=== PATIENT | male | born 1990 | race Caucasian/White ===

== ENCOUNTER 2023-11-01 15:13 | Emergency (ER) | payer SELFPAY ==
[2023-11-01 15:13] VITALS: BP 105/68; PULSE 91; RESP 22; TEMP 36.6; O2SAT 93; BMI 47.0
--- NOTE | 2023-11-01 15:20 | ED.C_ITS ---
HPI - Psych 2 General: Chief Complaint: Psychiatric Symptoms Stated Complaint: mhe Time Seen by Provider: 11/01/23 15:14 Source: patient and family Mode of arrival: EMS Limitations: other (intoxicated) History of Present Illness: Patient is a 33-year-old male presents to ED today via EMS for evaluation of a possible panic attack . Patient states earlier he felt like he could not breathe which then triggered his to call 911. later arrives and is able to speak to her as well. Patient is a longstanding alcoholic drinking up to 1/5 daily. states he recently lost his job so has been on a marti over the past week. She states he has been having episodes where he feels like he cannot breathe for approximately an hour over the past week or so. He has not had any seizure-like activity. Patient is not interested in alcohol detox. He reports marijuana use but no other drug use. He states he is not homicidal or suicidal. MD complaint: other (alcohol abuse, possible panic attacks) Onset (ago): day(s) Duration: intermittent History of same: Yes Exacerbating factors: alcohol Context: recent alcohol abuse Associated psychiatric symptoms: depression Associated symptoms: Reports depression; Deny auditory hallucinations, visual hallucinations, homicidal ideation or suicidal ideation Treatments prior to arrival: none Review of Systems 2 Const: Denies: fever(s), chills, body aches, fatigue or malaise Eyes: Denies: change in vision, blurry vision, photophobia, floaters or seeing flashes Card: Denies: chest pain, palpitations, irregular heart rhythm, edema, syncope or pre-syncope Resp: Reports: dyspnea (intermittent); Denies: productive cough, non-productive cough, wheezing or hemoptysis GI: Denies: abdominal pain, nausea, vomiting or diarrhea Musc: Denies: neck pain, back pain, extremity pain or joint pain Neuro: Denies: headache(s), numbness in extremities, weakness in extremities or sensory changes Psych: Reports: anxiety and depression; Denies: paranoia, visual hallucinations, auditory hallucinations, suicidal ideation or homicidal ideation Physical Exam 2 Const: COMMON NORMALS: no acute distress, patient oriented x3, no limitations, alert and well nourished GENERAL APPEARANCE: cooperative and odor of alcohol detected ORIENTATION/CONSCIOUSNESS: Yes awake, Yes oriented to person, Yes oriented to place and Yes oriented to time OTHER: intoxicated HENMT: COMMON NORMALS: normocephalic and atraumatic HEAD & SCALP: normal to inspection, normocephalic and atraumatic Chest: COMMONS NORMALS: normal inspection of the chest and normal palpation of entire chest wall Resp: COMMON NORMALS: normal respiratory effort and clear to auscultation bilaterally AUSCULTATION: clear to auscultation bilaterally Cardio: COMMON NORMALS: regular rate and regular rhythm RATE: regular rate RHYTHM: regular rhythm GI: COMMON NORMALS: Normal to inspection, nondistended, normoactive bowel sounds present, Soft to palpation and non-tender PALPATION: Yes Soft to palpation Neuro: RADHA COMA SCALE: document GCS findings Radha coma scale eye opening: Spontaneous Radha coma scale verbal response: Orientated Hydro coma scale motor response: Obey commands Radha coma scale total score: 15 COMMON NORMALS: patient oriented x3 SENSORIUM/ORIENTATION: Yes alert, Yes oriented to person, Yes oriented to place and Yes oriented to time Psych: COMMON NORMALS: cooperative APPEARANCE: Yes grossly normal A TTITUDE: Yes calm SPEECH: Yes slurred (intoxicated) OTHER: exam limited secondary to intoxication status Course 2 Vital Signs: Vital signs: Vital Signs Temperature 97.9 F 11/01/23 19:51 Pulse Rate 83 11/01/23 19:55 Respiratory Rate 16 11/01/23 19:55 Blood Pressure 117/74 11/01/23 19:55 Pulse Oximetry 93 11/01/23 19:55 Oxygen Delivery Me thod Room Air 11/01/23 19:55 MDM - Psych Medical Decision Making Patient is not suicidal or homicidal. He is sobering up and ambulatory here without difficulty. His is here to provide a ride home. He states he has an initial follow-up appointment at [facility] on Friday and is going to discuss with them treatment options for his chronic alcohol abuse. Blood work here is consistent with his chronic alcohol abuse-thrombocytopenia, elevated, transaminitis. He was encouraged to follow up with PCP for these inconsistencies. He does not want any form of treatment here and would like to go home. Medical Records I reviewed the patient's medical records. Lab Data I reviewed the patient's lab results. 11/01/23 16:32 11/01/23 16:32 Radiology Impressions Chest X-Ray 11/01/23 15:53 IMPRESSION: No acute findings. Laboratory Results WBC 9.11 10^3/uL (3.29-11.43) 11/01/23 16:32 RBC 4.34 10^6/uL (3.85-5.65) 11/01/23 16:32 Hgb 15.10 g/dL (11.27-16.99) 11/01/23 16:32 Hct 43.4 % (37-53) 11/01/23 16:32 MCV 100.0 fl (82-101) 11/01/23 16:32 MCH 34.8 pg (27-33) H 11/01/23 16:32 MCHC 34.8 g/dL (30-55) 11/01/23 16:32 RDW 12.5 % (12.1-15.1) 11/01/23 16:32 Plt Count 56 10^3/cmm (157-399) L 11/01/23 16:32 MPV 10.1 fL (7.4-10.4) 11/01/23 16:32 Neut % (Auto) 62.2 % 11/01/23 16:32 Lymph % (Auto) 28.5 % 11/01/23 16:32 [place] % (Auto) 8.1 % 11/01/23 16:32 Eos % (Auto) 0.2 % 11/01/23 16:32 Baso % (Auto) 0.8 % 11/01/23 16:32 Neut # (Auto) 5.66 10^3/uL (1.8-7.7) 11/01/23 16:32 Lymph # (Auto) 2.6 10^3/uL (0.8-4.8) 11/01/23 16:32 [place] # (Auto) 0.7 10^3/uL (0.2-0.9) 11/01/23 16:32 Eos # (Auto) 0.0 10^3/uL (0.0-0.8) 11/01/23 16:32 Baso # (Auto) 0.1 10^3/uL (0.0-0.1) 11/01/23 16:32 Nucleated RBC % (auto) 0 % 11/01/23 16:32 Nucleated RBCs # 0.0 /100WBC 11/01/23 16:32 Sodium 140 mmol/L (136-145) 11/01/23 16:32 Potassium 4.0 mmol/L (3.5-5.1) 11/01/23 16:32 Chloride 99 mmol/L (98-107) 11/01/23 16:32 Carbon Dioxide 23 mmol/L (22-29) 11/01/23 16:32 Anion Gap 22.0 (5-19) H 11/01/23 16:32 BUN 21 mg/dL (6-20) H 11/01/23 16:32 Creatinine 2.0 mg/dL (0.7-1.2) H 11/01/23 16:32 GFR Calculation 38.4 mL/min (90-130) L 11/01/23 16:32 Glucose 107 mg/dL (65-115) 11/01/23 16:32 Calculated Osmolality 293 mOsm/kg (285-295) 11/01/23 16:32 Calcium 8.9 mg/dL (8.5-10.5) 11/01/23 16:32 Total Bilirubin 1.2 mg/dL (0.15-1.2) 11/01/23 16:32 AST 169 U/L (0-40) H 11/01/23 16:32 ALT 87 U/L (0-41) H 11/01/23 16:32 Alkaline Phosphatase 95 U/L (40-130) 11/01/23 16:32 Total Protein 6.9 g/dL (6.6-8.7) 11/01/23 16:32 Albumin 4.0 g/dL (3.5-5.2) 11/01/23 16:32 Globulin 2.9 g/dL (1.3-4.6) 11/01/23 16:32 Salicylates < 0.3 mg/dL (3-10) L 11/01/23 16:32 Acetaminophen < 5.0 ug/mL (10-30) L 11/01/23 16:32 Ethyl Alcohol 450 mg/dL (0-10) H* 11/01/23 16:32 No radiology studies performed this visit Discharge Plan Discharge Patient Disposition: Home Clinical Impression: Chronic alcohol abuse Acute alcoholic intoxication in alcoholism (blood level over 0.3) Qualifiers: Complication of substance-induced condition: uncomplicated Qualified Code(s): F 10220 - Alcohol dependence with intoxication, uncomplicated Condition: Stable Discharge Orders: Discharge ED (Routine); Ordered 11/01/23 Ordered By: Annalee Crain Coding Level of Care Code ED Police [employer] Lieutenant for Katiuska Melgar
--- NOTE | 2023-11-01 15:53 | XRR_ITS ---
PROCEDURE INFORMATION: Exam: XR Chest Exam date and time: 11/01/2023 4:00 PM Age: 33 years old Clinical indication: Pain; Chest pressure; Additional info: Chest pain TECHNIQUE: Imaging protocol: Radiologic exam of the chest. Views: 1 view. COMPARISON: No relevant prior studies available. FINDINGS: Lungs: Unremarkable. No consolidation. Pleural spaces: Unremarkable. No pleural effusion. No pneumothorax. Heart/Mediastinum: Unremarkable. No cardiomegaly. Bones/joints: Unremarkable. XR/XR chest 1V portable [id number] IMPRESSION: No acute findings.
--- NOTE | 2023-11-01 16:00 | ECG_ITS ---
[facility] Test Date: 2023-11-01 Pat Name: Macario Padilla Department: Room: Gender: Male Building Services Coordinator: : 1990 Requested By: Annalee Crain Order Number: [id number] Quintanilla MD: Zeke Marquez M.D. Measurements Intervals [place] Rate: 74 P: 52 OK: 154 QRS: 9 QRSD: 97 T: 30 QT: 377 QTc: 420 Interpretive Statements SINUS RHYTHM MINIMAL VOLTAGE CRITERIA FOR LVH, CONSIDER NORMAL VARIANT [MEETS CRITERIA IN ONE OF: R(aVL), S(V1), R(V5), R(V5/V6)+S(V1)] NONSPECIFIC T-WAVE ABNORMALITY No previous ECG available for comparison Electronically Signed On 11-02-2023 7:59:54 CDT by Zeke Marquez M.D. [email or web address]
[2023-11-01 16:37] LABS: Basophils # 0.1 10^3/uL (0.0-0.1); Basophils % 0.8 %; Eosinophils % 0.2 %; Hematocrit 43.4 % (37-53); Lymphocytes # 2.6 10^3/uL (0.8-4.8); Lymphocytes % 28.5 %; Mean Corpuscular HGB Conc 34.8 g/dL (30-55); Mean Corpuscular Hemoglobin 34.8 pg (27-33); Mean Platelet Volume 10.1 fL (7.4-10.4); Monocytes # 0.7 10^3/uL (0.2-0.9); Monocytes % 8.1 %; Neutrophils # 5.66 10^3/uL (1.8-7.7); Neutrophils % 62.2 %; Nucleated Red Blood Cells % 0 %; Platelet Count 56 10^3/cmm (157-399); Red Blood Count 4.34 10^6/uL (3.85-5.65); Red Cell Distribution Width 12.5 % (12.1-15.1); White Blood Count 9.11 10^3/uL (3.29-11.43)
[2023-11-01 16:53] LABS: Alanine Aminotransferase 87 U/L (0-41); Alkaline Phosphatase 95 U/L (40-130); Aspartate Amino Transferase 169 U/L (0-40); Blood Urea Nitrogen 21 mg/dL (6-20); Calcium 8.9 mg/dL (8.5-10.5); Carbon Dioxide 23 mmol/L (22-29); Chloride 99 mmol/L (98-107); Globulin 2.9 g/dL (1.3-4.6); Glomerular Filtration Rate 38.4 mL/min (90-130); Glucose 107 mg/dL (65-115); Osmolality Calculated 293 mOsm/kg (285-295); Sodium 140 mmol/L (136-145); Total Bilirubin 1.2 mg/dL (0.15-1.2); Total Protein 6.9 g/dL (6.6-8.7)
[2023-11-01 16:59] LABS: Acetaminophen < 5.0 ug/mL (10-30); Creatinine Clr Calc Pharmacy 69.2616; Salicylate < 0.3 mg/dL (3-10)
[2023-11-01 17:01] LABS: Alcohol Level 450 mg/dL (0-10)
[2023-11-01] MEDS: sodium chloride 0.9% 1,000 ML 999 ML IV (18:29)
[2023-11-01 19:51] VITALS: BP 105/68; RESP 22; TEMP 36.6; O2SAT 93
[2023-11-01 19:55] VITALS: BP 117/74; PULSE 83; RESP 16; O2SAT 93
== END 2023-11-01 19:53 | disposition home or self-care (01) ==
PROVIDERS: Emergency Provider Physician Assistant
DX: F10.120 Alcohol abuse with intoxication, uncomplicated (principal); Y90.8 Blood alcohol level of 240 mg/100 ml or more
CPT/HCPCS: 36415; 71045; 80053; 80307; 85025; 93005; 99285; J7030